=== PATIENT | female | born 1995 | race Caucasian/White ===

== ENCOUNTER 2019-06-22 18:16 | Emergency (ER) | payer BC ==
[~2019-06-22] VITALS: Ht 160 cm; Wt 56.0 kg
[2019-06-22 18:21] VITALS: BP 124/68
[2019-06-22] MEDS ORDERED: LIDOCAINE HCL 1% 20ML VIAL (Pyxis) INJ INFIL ONE (18:30)
[2019-06-22] MEDS ORDERED: TETANUS, DIPHTHERIA, PERTUSSIS VAC/PF 0.5ML (>7YR OLD) IM ONE (18:30)
[2019-06-22] MEDS ORDERED: ACETAMINOPHEN 500MG TABLET PO ONE (18:45)
== END 2019-06-22 20:15 | disposition home or self-care (01) ==
LOC: ER 18:16
DX: S61.412A Laceration without foreign body of left hand, initial encounter (principal); W26.0XXA Contact with knife, initial encounter; Y93.89 Activity, other specified; Y92.010 Kitchen of single-family (private) house as the place of occurrence of the external cause
CPT/HCPCS: 12002; 90471; 90715; 99283; J3490